=== PATIENT | female | born 1945 | race Caucasian/White ===

== ENCOUNTER → 2020-01-20 12:35 | Outpatient (CLI) | payer MEDICARE, SELFPAY ==
--- NOTE | ~2020-01-20 | MM_ITS ---
EXAMINATION: MM screening [place] BI w clotilde HISTORY: Screening mammogram TECHNIQUE: Craniocaudal and mediolateral oblique 3-D tomosynthesis images were obtained and synthetic 2-D images were generated. CAD analysis was submitted and interpreted. COMPARISON: No prior mammogram is available for comparison at this institution. BREAST PARENCHYMAL COMPOSITION: There are scattered areas of fibroglandular density. FINDINGS: There is no mammographic evidence for malignancy in the right breast. There is a focal asym metry superiorly in the left breast on MLO view. There are also clustered punctate calcifications in the upper outer quadrant of the left breast. IMPRESSION: 1. Clustered left breast calcifications in the upper outer quadrant. Nearby asymmetry in the upper as pect of the left breast, best seen on MLO view. 2. Additional mammographic views and possible breast ultrasound are recommended. BI-RADS Category 0: Incomplete: Needs additional imaging evaluation. Reviewed, dictated and finalized at location A. NCIAL COORDINATOR IMPRESSION: 1. Clustered left breast calcifications in the upper outer quadrant. Nearby asy mmetry in the upper aspect of the left breast, best seen on MLO view. 2. Additional mammographic views and possible breast ultrasound are recommended . BI-RADS Category 0: Incomplete: Needs additional imaging evaluation.
== END ==
PROVIDERS: Visit Provider Obstetrics & Gynecology Gynecology
DX: Z12.31 Encounter for screening mammogram for malignant neoplasm of breast (principal); R92.8 Other abnormal and inconclusive findings on diagnostic imaging of breast
CPT/HCPCS: 77063; 77067

== ENCOUNTER 2020-07-09 00:46 | Outpatient (CLI) | payer MEDICARE, SELFPAY ==
[2020-07-09 20:23] LABS: SARS-CoV-2 RNA PCR Negative
== END 2020-07-09 00:47 | disposition home or self-care (01) ==
LOC: ANHCOVIDDT 00:47
PROVIDERS: Visit Provider Orthopaedic Surgery
DX: Z01.812 Encounter for preprocedural laboratory examination (principal); Z20.828 Contact with and (suspected) exposure to other viral communicable diseases
CPT/HCPCS: 87635; C9803; U0003

== ENCOUNTER 2020-07-11 01:29 | Day surgery (SDC) | payer MEDICARE, SELFPAY ==
[2020-07-06 14:01] VITALS: BMI 32.6
--- NOTE | 2020-07-10 08:21 | PM.IMHP ---
H&P: HPI History of Present Illness Date/Time: 07/10/20 08:21 Chief complaint: Right rotator cuff tear Narrative: Marina Hidalgo is a 75 year old female [facility] Social History Social History Smoking packs per day: 2 Smoking cigarettes per day: 40.0 Years smoked: 30 Smoking pack-years: 60.00 Smoking status: Former smoker Tobacco type: cigarettes Smoking end date: 11/23/78 Alcohol intake: never Spiritual care concerns: No Meds Home Medications and Allergies Home Medications Medication Instructions Recorded Confirmed Type aspirin [Aspir-81] 81 mg PO DAILY 07/06/20 07/06/20 History biotin 5 mg PO DAILY 07/06/20 07/06/20 History calcium acetate(phosphat bind) 667 mg PO BID 07/06/20 07/06/20 History cholestyramine (with sugar) 1 g PO TID 07/06/20 07/06/20 History clotrimazole-betamethasone 1 applic TOPICAL DAILY 07/06/20 07/06/20 History cranberry extract 425 mg PO BID 07/06/20 07/06/20 History donepezil 10 mg PO HS 07/06/20 07/06/20 History escitalopram oxalate 5 mg PO EVERY OTHER DAY 07/06/20 07/06/20 History lshxizgj-tya-jlbp-FA-lutein 1 tablet PO DAILY 07/06/20 07/06/20 History [Centrum Silver Women] Allergies Allergy/AdvReac Type Severity Reaction Status Date / Time tramadol AdvReac Intermediate UNABLE TO Verified 07/06/20 14:00 MOVE LEFT LEG adhesive tape AdvReac Rash Verified 07/06/20 14:01 Exam Const: Other: Patient has pain right shoulder and impingement worse with activity somewhat relieved by rest she has tried medicine therapy cortisone exercise time it is felt she has rotator cuff tear documented by MRI scan I told her that on occasion I can fix this will try to fix it and see if we get her better if he can not that she will require reverse shoulder replacement later I have discussed this with her risks benefits limitations and alternatives in detail Assessment and Plan Additional Plan patient has rotator cuff tear large right will proceed with arthroscopy partial open distal clavicle excision rotator cuff debridement repair for a large tear if it fails will need reverse shoulder arthroplasty later
--- NOTE | 2020-07-10 12:38 | P.PNAN_ITS ---
Anes - Initial Pre Proc Eval Procedure: Operation Date: 07/11/20 09:30 Proposed Procedures p Right Shoulder Arthroscopy, Acromioplasty, Open Distal Clavicle Excision, Rotator Cuff Repair, Proceed As Indicated - Naren Sullivan MD Date/Time: 07/10/20 12:38 Surgeon: Naren Sullivan MD Pre Op Diagnosis: Right rotator cuff tear Patient Data Age: 75 Gender: F Height: 1.57 m Weight: 81 kg Allergies Allergy/AdvReac Type Severity Reaction Status Date / Time tramadol AdvReac Intermediate UNABLE TO Verified 07/11/20 07:35 MOVE LEFT LEG adhesive tape AdvReac Rash Verified 07/11/20 07:35 Home Medications Medication Instructions Recorded Confirmed Type Centrum Silver Women 1 tablet PO DAILY 07/06/20 07/11/20 History aspirin [Aspir-81] 81 mg PO DAILY 07/06/20 07/11/20 History biotin 5 mg PO DAILY 07/06/20 07/11/20 History calcium acetate(phosphat bind) 667 mg PO BID 07/06/20 07/11/20 History cholestyramine (with sugar) 1 g PO TID 07/06/20 07/11/20 History cranberry extract 425 mg PO BID 07/06/20 07/11/20 History donepezil 10 mg PO HS 07/06/20 07/11/20 History escitalopram oxalate 5 mg PO EVERY OTHER DAY 07/06/20 07/11/20 History hydrocodone-acetaminophen 1 tablet PO Q4H PRN #40 tablet 07/11/20 Rx Patient hx anesthesia problems: none Family hx anesthesia problems: none PMFSH Past Medical History Medical History (Updated 07/10/20 @ 12:39 by Angelito Rendon MD) Anxiety HX PANIC ATTACKS, NONE RECENTLY Dementia Depression Obesity Social History Social History Smoking packs per day: 2 Smoking cigarettes per day: 40.0 Years smoked: 30 Smoking pack-years: 60.00 Smoking status: Former smoker Tobacco type: cigarettes Smoking end date: 11/23/78 Alcohol intake: never Living arrangements: alone Spiritual care concerns: No Anes - Eval Final PreProcedure Day of Procedure 07/10/20 12:38 Patient weight: obese Heart: regular rate and rhythm Lungs: clear to auscultation and normal air movement Airway: Mallampati scale class II Neurological: alert and oriented Last oral intake: >/= 8 hours ASA classification: III Emergent: no Anesthetic plan: proceed Anesthesia type and monitoring: general ETT Informed Consent: The patient's anesthetic plan and its attendant risks and benefits were discussed with the patient/family/POA. Questions were solicited an d answers provided to the satisfaction of the patient/family/POA.
[2020-07-11] VITALS (10 sets, daily range): BP systolic 113–149; BP diastolic 54–77; PULSE 65–85; RESP 8–18; TEMP 36.1–36.2; O2SAT 94–100
--- NOTE | 2020-07-11 07:09 | WPDHPUPDATE1 ---
History and Physical Update Update Date/Time: 07/11/20 07:09 History and Physical has been reviewed, including an updated exam of the patient. There are NO changes in the patient's condition. Risks, benefits, and alternatives have been discussed and questions answered. Patient agrees to proceed with procedure.
--- NOTE | 2020-07-11 07:46 | ECG_ITS ---
Measurements Intervals [place] Rate: 61 P: 38 [place]: 178 QRS: -31 QRSD: 89 T: -3 QT: 440 QTc: 444 Interpretive Statements SINUS RHYTHM LEFT AXIS DEVIATION VOLTAGE CRITERIA FOR LVH BORDERLINE R WAVE PROGRESSION, ANTERIOR LEADS MINIMAL Q WAVES- HIGH LATERAL LEADS BORDERLINE T WAVE ABNORMALITY- INFERIOR LEADS BORDERLINE ECG Electronically Signed On 07-11-2020 8:50:07 CDT by Jayy Sears D.O.
[2020-07-11] MEDS: LACTATED RINGERS 1,000 ML 30 ML IV CONT ×2 (08:13→10:56)
[2020-07-11] MEDS: ACETAMINOPHEN 500 MG TABLET 1000 MG PO (08:14)
[2020-07-11] MEDS: KETOROLAC 15 MG/ML VIAL (*BKC) IV PUSH (08:16)
--- NOTE | 2020-07-11 08:59 | SUR.PREOP ---
Up to bathroom.
[2020-07-11] MEDS: ceFAZolin 2 GM/D5W 50 ML 2 GM/50 ML BAG IVPB (09:33)
--- NOTE | 2020-07-11 09:34 | WPDANESPNB ---
Anes - Peripheral Nerve Block Date/Time: 07/11/20 09:34 I have discussed with the patient/family/POA the placement of a peripheral nerve block for post-operative pain management, including associated risks, benefits, complications, and side effects. Alternative methods of post-operative analgesia were detailed. Questions were solicited and answers provided to the satisfaction of the patient/family/POA. Time-Out: A pre-procedural Time-Out was completed immediately before starting the procedure and confirmed: Patient Identification, Site, Procedure, Patient Position and the Availability of Requisite Equipment. Clinical Indications: Acute post-operative pain management requested by the operative surgeon. Nerve Block Insertion Note Anes-nerve block: supraclavicular right Patient position: supine Skin prep: chlorhexidine Needle: 22 gauge, stimulating, insulated echogenic needle. Needle length: 80 mm Technique: ultrasound (in plane) Injectate: bupivacaine 0.5% with epi 5 mcg/ml (20cc) Observations: tolerated well Complications: none Procedure start time:: 915 Procedure end time:: 920
[2020-07-11] MEDS: LIDO 1%/EPINEPHRINE 1:100,000 20 ML VIAL INFILTRATE (10:15)
--- NOTE | 2020-07-11 10:36 | PM.PROC ---
Procedure Note - Detailed Date of procedure: 07/11/20 Pre-op diagnosis: Right rotator cuff tear Post-op diagnosis: same Anesthesia: GETA Surgeon: Naren Sullivan MD Patient brought to OR7. A general anesthetic was used and placed in the beach chair position. Standard posterior and lateral portals made. Acromioplasty done. Rotator cuff tear seen. Nickel sized. A longitudinal incision made over the distal clavicle, and distal. 3-4 mm distal clavicle removed and the edges bevelled. Deltoid split. Acromioplasty rasped and rotator cuff tear identified. The edges were trimmed and then sewn down in a trough with #2 ethibond. A good repair was obtained. Deltoid repaired to itself the trapezius and acromion. the skin was then closd with 2-0 vicryl and skin glue. Plant Mechanic: Kaleb Pope Estimated blood loss (mL): 50 Drains: No Packing: No Pathology: none sent Complications: No immediate complications Condition: stable Disposition: PACU
[2020-07-11] MEDS: ONDANSETRON HCL ODT 4 MG TABLET PO (13:34)
== END 2020-07-11 13:45 | disposition home or self-care (01) ==
PROVIDERS: PCP Family Medicine; Visit Provider Orthopaedic Surgery
PROC: (CPT 29805; principal; 2020-07-11 09:30)
DX: M75.101 Unspecified rotator cuff tear or rupture of right shoulder, not specified as traumatic (principal); G89.18 Other acute postprocedural pain; Z87.891 Personal history of nicotine dependence; Z79.82 Long term (current) use of aspirin
CPT/HCPCS: 23420; 23120; 64415; 93005; A4565; A9270; J0330; J0690; J1100; J1885; J2250; J2405; J2704; J3010; J7120

== ENCOUNTER 2020-10-12 14:07 | Outpatient (CLI) | payer MEDICARE, SELFPAY ==
[2020-10-12 15:01] LABS: Anion Gap 7 mmol/L (8-16); Blood Urea Nitrogen 19 mg/dL (7-17); Calcium 9.2 mg/dL (8.4-10.2); Carbon Dioxide 31 mmol/L (22-30); Chloride 104 mmol/L (98-107); Estimated Glomerular Filt Rate > 60; Glucose 106 mg/dL (65-105); Potassium 4.3 mmol/L (3.4-5.0); Sodium 142 mmol/L (137-145)
--- NOTE | 2020-10-12 15:04 | ECG_ITS ---
Measurements Intervals [place] Rate: 61 P: 66 [place]: 168 QRS: -20 QRSD: 104 T: 21 QT: 431 QTc: 435 Interpretive Statements SINUS RHYTHM LOW QRS VOLTAGE IN PRECORDIAL LEADS VOLTAGE CRITERIA FOR LVH BASELINE WANDER- II, III, AVF BORDERLINE ECG Electronically Signed On 10-12-2020 18:07:36 MONOGRAM OPERATOR by Jayy Sears D.O.
== END 2020-10-12 14:08 | disposition home or self-care (01) ==
LOC: ANHLAB 14:12
PROVIDERS: PCP Family Medicine; Visit Provider Orthopaedic Surgery
DX: Z01.818 Encounter for other preprocedural examination (principal)
CPT/HCPCS: 36415; 80048; 93005

== ENCOUNTER 2020-10-20 08:57 | Outpatient (NON) | payer MEDICARE, SELFPAY ==
[2020-10-20 23:02] LABS: SARS-CoV-2 RNA PCR Negative
== END 2020-10-20 08:58 ==
LOC: ANHCOVIDDT 08:59
PROVIDERS: PCP Family Medicine; Visit Provider Orthopaedic Surgery
DX: Z20.828 Contact with and (suspected) exposure to other viral communicable diseases (principal); R09.89 Other specified symptoms and signs involving the circulatory and respiratory systems
CPT/HCPCS: 87635; C9803; U0003

== ENCOUNTER → 2021-05-08 15:55 | Outpatient (CLI) | payer MEDICARE, SELFPAY ==
--- NOTE | ~2021-05-08 | MM_ITS ---
EXAMINATION: MM screening [facility] BI w clotilde HISTORY: Screening mammogram TECHNIQUE: Craniocaudal and mediolateral oblique 3-D tomosynthesis images were obtained and synthetic 2-D images were generated. CAD analysis was submitted and interpreted. COMPARISON: 01/20/2020, 03/13/2016, 01/25/2015 BREAST PARENCHYMAL COMPOSITION: There are scattered areas of fibroglandular density. FINDINGS: There is no evidence of suspicious mass, calcification, or architectural distortion to sugg est malignancy in either breast. There has been no suspicious interval change. IMPRESSION: 1. No mammographic evidence of malignancy. 2. Recommend routine screening mammography in one year. BI-RADS Category 1: Negative Reviewed, dictated and finalized at location A.
== END ==
PROVIDERS: Visit Provider Obstetrics & Gynecology Gynecology
DX: Z12.31 Encounter for screening mammogram for malignant neoplasm of breast (principal)
CPT/HCPCS: 77063; 77067

== ENCOUNTER 2021-08-27 18:33 | Emergency (ER) | payer MEDICARE, SELFPAY ==
--- NOTE | ~2021-08-27 | XR_ITS ---
EXAMINATION: XR hip RT 2V w AP pelvis EXAM DATE: 08/27/2021 19:56 INDICATION: Initial encounter following injury, with pain of the right hip, pelvis. TECHNIQUE: Right hip frontal, 'frog leg' projections for interpretation. Frontal projection pelvis. There is no prior study for comparison. FINDINGS: Smooth right hip femoral head contour, no radiographic evidence of avascular necrosis. The re are no acute fractures or dislocations identified. There is no subcutaneous gas. The soft tissue is unremarkable. There are no radiopaque foreign bodies. There is moderate primary osteoarthritis . IMPRESSION: No acute osseous findings. Reviewed, dictated and finalized at location A. IMPRESSION: No acute osseous findings.
[2021-08-27 18:40] VITALS: RESP 18; TEMP 36.2
[2021-08-27 20:44] VITALS: BP 125/64; PULSE 70; RESP 20; O2SAT 99
--- NOTE | 2021-08-27 21:19 | ED.LOWEXIN ---
HPI - Extremity Injury (Lower) General Chief Complaint: Extremity Injury, Lower Stated Complaint: right hip pain Time Seen by Provider: 08/27/21 18:42 Source: patient Mode of arrival: ambulatory Limitations: no limitations History of Present Illness MD complaint: hip injury Onset (ago): hour(s) Injury: Right: hip (hip strain while carrying laundry) Type of Injury: unknown Place: home Severity: moderate Severity scale (1-10): 6 Relieving factors: rest Exacerbating factors: weight bearing, movement and palpation Associated symptoms: snap/pop sensation and ambulatory Other symptoms: none Treatments prior to arrival: other (none, rest) Related Data Home Medications Medication Instructions Recorded Confirmed Centrum Silver Women 1 tablet PO DAILY 07/06/20 07/11/20 aspirin [Aspir-81] 81 mg PO DAILY 07/06/20 07/11/20 biotin 5 mg PO DAILY 07/06/20 07/11/20 calcium acetate(phosphat bind) 667 mg PO BID 07/06/20 07/11/20 cholestyramine (with sugar) 1 g PO TID 07/06/20 07/11/20 cranberry extract 425 mg PO BID 07/06/20 07/11/20 donepezil 10 mg PO HS 07/06/20 07/11/20 escitalopram oxalate 5 mg PO EVERY OTHER DAY 07/06/20 07/11/20 Allergies Allergy/AdvReac Type Severity Reaction Status Date / Time tramadol AdvReac Intermediate UNABLE TO Verified 09/01/21 13:42 MOVE LEFT LEG adhesive tape AdvReac Rash Verified 09/01/21 13:42 Review of Systems Review of Systems: CONSTITUTIONAL: no fever, no weight loss, no confusion EYES: no vision changes, no eye pain ENT: no rhinorrhea, no sore throat, no difficulty swallowing CARDIOVASCULAR: no chest pain, no leg edema, no palpitations RESPIRATORY: no cough, no shortness of breath, no hemoptysis GASTROINTESTINAL: no abdominal pain, no nausea, no vomiting, no diarrhea GENITOURINARY: no flank pain, no dysuria, no hematuria SKIN: no rash, no jaundice MUSCULOSKELETAL: no trauma R hip pain radiating R posterior thigh, R knee pain NEUROLOGIC: No headache, no dizziness, no focal weakness PSYCHIATRIC: No hallucinations, no suicidal ideation PMFSH Past Medical History Medical History Anxiety HX PANIC ATTACKS, NONE RECENTLY Dementia Depression Obesity Social History Social History Smoking packs per day: 2 Smoking cigarettes per day: 40.0 Years smoked: 30 Smoking pack-years: 60.00 Smoking status: Former smoker Tobacco type: cigarettes Smoking end date: 11/23/78 Alcohol intake: never Spiritual care concerns: No Exam Narrative: General: alert, afebrile, answering all questions appropriately Head: normocephalic, atraumatic Eyes: EOMI bilaterally, anicteric, no injection ENT: moist mucous membranes, oropharynx patent, no rhinorrhea Neck: supple, trachea midline, no JVD Chest: equal chest rise bilaterally, no chest wall trauma noted Lungs: clear to auscultation bilaterally, respirations unlabored CV: regular rate, no ESTIVEN B, calf size equal bilaterally Abd: soft, non-distended, non-tender, no rebound, no gaurding, negative Ni's : no CVA tenderness B, bladder non-distended Back: no lumbar bony tenderness. paraspinal muscles without spasm EXT: RLE: Skin intact, no deformity noted, no bruising, no swelling, tenderness to the R posterior trochanter with palpation; no knee effusion, DP 1+ Skin: warm, dry, no pallor Neuro: alert, oriented x 3; CN 2-12 grossly intact, no dysarthria Psych: affect appropriate, though content normal Course Course Emergency Course: Right hip x-ray with no acute findings, patient does have point tenderness at the greater trochanter without deformity able to bear weight, consistent with either tendinitis at the or bursitis. Tylenol given in the ED. Patient instructed to follow-up with her primary doctor or orthopedic coder if no improvement. Vital Signs Vital signs: Vital Signs Temperature 36.2 C L 08/27/21 18:40 R
[2021-08-27] MEDS: ACETAMINOPHEN 500 MG TABLET 1000 MG PO (21:21)
--- NOTE | 2021-08-27 21:51 | PC.NURSE ---
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 states they will be there approx. 20 minutes from now.
== END 2021-08-27 21:50 | disposition home or self-care (01) ==
PROVIDERS: Emergency Provider Emergency Medicine
DX: M70.61 Trochanteric bursitis, right hip (principal); Z79.82 Long term (current) use of aspirin; Z87.891 Personal history of nicotine dependence; X50.9XXA Other and unspecified overexertion or strenuous movements or postures, initial encounter
CPT/HCPCS: 73502; 99283; A9270

== ENCOUNTER 2021-09-01 13:18 | Emergency (ER) | payer MEDICARE, SELFPAY ==
[2021-09-01 13:33] VITALS: BP 151/87; PULSE 86; RESP 19; TEMP 36.9; O2SAT 96
--- NOTE | 2021-09-01 22:01 | ED.GENADULT ---
HPI - General Adult General Chief complaint: Extremity Injury, Lower Stated complaint: right hip pain, no injury Time Seen by Provider: 09/01/21 13:31 Source: patient Mode of arrival: ambulatory Limitations: no limitations History of Present Illness HPI narrative: Patient presents with chief complaint of pain in his right buttock that radiated down the right leg. Patient states that she is selling her house that she has been doing a lot of moving and bending and rotating lately. Patient denies any falls, weakness or neurological deficits. Patient states that she was told that it was sciatica but wanted a second opinion. Patient states that she took ibuprofen and Tylenol which helped some but there is still discomfort. Related Data Home Medications Medication Instructions Recorded Confirmed Centrum Silver Women 1 tablet PO DAILY 07/06/20 07/11/20 aspirin [Aspir-81] 81 mg PO DAILY 07/06/20 07/11/20 biotin 5 mg PO DAILY 07/06/20 07/11/20 calcium acetate(phosphat bind) 667 mg PO BID 07/06/20 07/11/20 cholestyramine (with sugar) 1 g PO TID 07/06/20 07/11/20 cranberry extract 425 mg PO BID 07/06/20 07/11/20 donepezil 10 mg PO HS 07/06/20 07/11/20 escitalopram oxalate 5 mg PO EVERY OTHER DAY 07/06/20 07/11/20 Allergies Allergy/AdvReac Type Severity Reaction Status Date / Time tramadol AdvReac Intermediate UNABLE TO Verified 09/01/21 13:42 MOVE LEFT LEG adhesive tape AdvReac Rash Verified 09/01/21 13:42 Review of Systems Review of Systems: CONSTITUTIONAL: Denies fever, chills, or sweats. EYES: Denies visual changes, redness, or discharge. ENT: Denies rhinorrhea, congestion, sore throat, or otalgia. CARDIOVASCULAR: Denies chest pain, palpitations, or edema. RESPIRATORY: Denies cough or dyspnea. GASTROINTESTINAL: Denies abdominal pain, nausea, vomiting, or diarrhea. GENITOURINARY: Denies dysuria or hematuria. SKIN: Denies rash or itching. MUSCULOSKELETAL: Reports right buttock pain denies back pain, joint pain, or myalgia. NEUROLOGIC: Denies headache, numbness, dizziness, or weakness. PSYCHIATRIC: Denies anxiety or depression. [facility] Past Medical History Medical History Anxiety HX PANIC ATTACKS, NONE RECENTLY Dementia Depression Obesity Social History Social History Smoking packs per day: 2 Smoking cigarettes per day: 40.0 Years smoked: 30 Smoking pack-years: 60.00 Smoking status: Former smoker Tobacco type: cigarettes Smoking end date: 11/23/78 Alcohol intake: never Spiritual care concerns: No Exam Narrative: GENERAL: Well-appearing, well-nourished, and in no acute distress. HEAD: Normocephalic, atraumatic. EYES: PERRLA and EOMI. CHEST: Clear to auscultation. No respiratory distress. No wheezes rales or rhonchi HEART: Regular rate and rhythm. No murmur heard. Normal peripheral pulses. EXTREMITIES: Pain with palpation of right knee. Patient able to ambulate. Patient reported radicular pain to palpation over the piriformis area. normal range of motion. No edema. SKIN: Warm, dry, no rash. NEURO: No focal deficits. Alert and oriented x3. Gait steady. PSYCH: Normal mood and affect. Course Vital Signs Vital signs: Vital Signs Temperature 98.5 F 09/01/21 13:33 Pulse Rate 86 09/01/21 13:33 Respiratory Rate 19 09/01/21 13:33 Blood Pressure 151/87 H 09/01/21 13:33 Pulse Oximetry 96 09/01/21 13:33 Temperature 98.5 F 09/01/21 13:33 Pulse Rate 86 09/01/21 13:33 Respiratory Rate 19 09/01/21 13:33 Blood Pressure 151/87 H 09/01/21 13:33 Pulse Oximetry 96 09/01/21 13:33 Medical Decision Making MDM Narrative Medical decision making narrative: Patient has no acute injury. Patient symptoms correlate with sciatica. Discussed option to introduce Medrol Dosepak along with Tylenol and ibuprofen that she has been taking. Patient does not want to tr
== END 2021-09-01 14:05 | disposition home or self-care (01) ==
LOC: ANHED 14:23
PROVIDERS: Emergency Provider Emergency Medicine; PCP Physician Assistant Surgical
DX: M54.31 Sciatica, right side (principal); F03.90 Unspecified dementia, unspecified severity, without behavioral disturbance, psychotic disturbance, mood disturbance, and anxiety; E66.9 Obesity, unspecified; Z68.34 Body mass index [BMI] 34.0-34.9, adult; Z87.891 Personal history of nicotine dependence; F41.9 Anxiety disorder, unspecified; F32.A Depression, unspecified; Z79.82 Long term (current) use of aspirin
CPT/HCPCS: 99282

== ENCOUNTER 2022-08-29 00:12 | Emergency (ER) | payer MEDICARE, SELFPAY ==
--- NOTE | ~2022-08-29 | CT_ITS ---
EXAMINATION: CT abdomen pelvis w con DATE: 08/29/2022 03:10 INDICATION: Abdominal pain TECHNIQUE: Computed tomography (CT) of the abdomen and pelvis was performed with 100 mL Omnipaque-350 intravenous contrast. Automated exposure control and iterative reconstruction technique were employe d. The dose-length product was 760.04 mGy-cm. COMPARISON: None FINDINGS: Lung bases are clear. Heart size is normal. No pericardial or pleural effusion. Small sliding-type hi atal hernia. Focal hepatic steatosis at the ligamentum teres. Cholecystectomy clips the gallbladder f [place]. Additional small geographic region of decreased enhancement/attenuation at segment 5 of the lea er measuring up to 12 mm in maximal dimension which is nonspecific potentially an additional region o f focal fat. Multiple splenic calcific lesions and single tiny hepatic calcification consistent with old granulomatous disease. Pancreas, bilateral adrenal glands and kidneys are normal. Fluid throughou t the colon consistent with diarrhea. Moderate diverticulosis along the descending and sigmoid colon without adjacent inflammatory change to suggest diverticulitis. Small bowel and appendix are normal. Bladder is normal. The uterus is not identified and has likely been surgically resected. 2.5 cm right adnexal cyst. No free intraperitoneal gas or fluid. No pathologically enlarged abdominal or pelvic l ymphadenopathy. Moderate to severe thoracolumbar spondylosis. IMPRESSION: 1. Fluid throughout the colon consistent with nonspecific diarrhea. No other acute intra-abdominal/pe lvic process. 2. Small sliding-type hiatal hernia. 3. 1.2 cm hypodense/hypoenhancing lesion in segment 5 of the liver with configuration suggesting foca l fat. Could consider pre and postcontrast MRI for more definitive determination. Reviewed, dictated and finalized at location A. IMPRESSION: 1. Fluid throughout the colon consistent with nonspecific diarrhea. No other ac [place] intra-abdominal/pelvic process. 2. Small sliding-type hiatal hernia. 3. 1.2 cm hypodense/hypoenhancing lesion in segment 5 of the liver with configu ration suggesting focal fat. Could consider pre and postcontrast MRI for more d efinitive determination.
[2022-08-29 00:15] VITALS: BP 114/94; PULSE 102; RESP 20; TEMP 36.7; O2SAT 96
--- NOTE | 2022-08-29 01:58 | ED.GENADULT ---
HPI - General Adult General Chief complaint: Nausea/Vomiting/Diarrhea Stated complaint: diarrhea Time Seen by Provider: 08/29/22 00:52 History of Present Illness HPI narrative: 77-year-old female presents to the emergency department for evaluation of multiple days of diarrhea. Patient states her last few days she has had multiple episodes of diarrhea. Patient denies associated pain. Patient has been taking Pepto-Bismol without any significant improvement. Patient has history of dementia and anxiety. Related Data Home Medications Medication Instructions Recorded Confirmed aspirin 81 mg tablet,delayed 81 mg PO DAILY 07/06/20 07/11/20 release (Aspir-) biotin 5 mg capsule 5 mg PO DAILY 07/06/20 07/11/20 calcium acetate(phosphat bind) 667 667 mg PO BID 07/06/20 07/11/20 mg capsule cholestyramine (with sugar) 4 gram 1 g PO TID 07/06/20 07/11/20 powder for susp in a packet cranberry extract 425 mg capsule 425 mg PO BID 07/06/20 07/11/20 donepezil 10 mg tablet 10 mg PO HS 07/06/20 07/11/20 escitalopram oxalate 5 mg tablet 5 mg PO EVERY OTHER DAY 07/06/20 07/11/20 multivit with 1 tablet PO DAILY 07/06/20 07/11/20 qoeyihlw-xjkl-YY-lutein 8 mg iron-400 mcg-300 mcg tablet (Centrum Silver Women) Allergies Allergy/AdvReac Type Severity Reaction Status Date / Time tramadol AdvReac Intermediate UNABLE TO Verified 09/01/21 13:42 MOVE LEFT LEG adhesive tape AdvReac Rash Verified 09/01/21 13:42 Review of Systems Review of Systems: CONSTITUTIONAL: Denies fever, chills, or sweats. EYES: Denies visual changes, redness, or discharge. ENT: Denies rhinorrhea, congestion, sore throat, or otalgia. CARDIOVASCULAR: Denies chest pain, palpitations, or edema. RESPIRATORY: Denies cough or dyspnea. GASTROINTESTINAL: See HPI GENITOURINARY: Denies dysuria or hematuria. SKIN: Denies rash or itching. MUSCULOSKELETAL: Denies back pain, joint pain, or myalgia. NEUROLOGIC: Denies headache, numbness, or weakness. [facility] Past Medical History Medical History Anxiety HX PANIC ATTACKS, NONE RECENTLY Dementia Depression Obesity Social History Social History Smoking packs per day: 2 Smoking cigarettes per day: 40.0 Years smoked: 30 Smoking pack-years: 60.00 Smoking status: Former smoker Tobacco type: cigarettes Smoking end date: 11/23/78 Alcohol intake: never Spiritual care concerns: No Exam Narrative: APPEARANCE: Well appearing, no pain, no distress, well-nourished. HEAD: normocephalic, atraumatic. EYES: PERRLA/EOMI, conjunctivae clear. NOSE: Normal no drainage NECK: Supple. No adenopathy, no masses. RESPIRATORY: Airway patent, respirations nonlabored. Clear to auscultation bilaterally, no rales, rhonchi, wheezing. CARDIOVASCULAR: Regular rate and rhythm without murmurs rubs or gallops. ABDOMINAL: Soft, nontender, nondistended, normal bowel sounds MUSCULOSKELETAL: Moves all extremities. Strength/ROM intact, No edema, No calf tenderness. NEURO: Alert. Cranial nerves II through XII intact. Grossly intact SKIN: Warm, dry. Normal Color Course Course Emergency Course: Patient was afebrile no leukocytosis. CMP is within normal limits. No evidence of urinary tract infection. Patient was negative for flu and COVID. Patient CT scan showed no acute abnormality. Patient was updated on results of her work-up and treatment for home. Patient was encouraged to have close follow-up with her primary care physician. Vital Signs Vital signs: Vital Signs Temperature 98.0 F 08/29/22 00:15 Pulse Rate 102 H 08/29/22 00:15 Respiratory Rate 20 08/29/22 00:15 Blood Pressure 114/94 H 08/29/22 00:15 Pulse Oximetry 96 08/29/22 00:15 Oxygen Delivery Room Air 08/29/22 00:15 Temperature 98.0 F 08/29/22 00:15 Pulse Rate 102 H 08/29/22 00:15 Respiratory Rate 20 08/29/22 00:1
[2022-08-29 02:35] LABS: Basophils Absolute Auto 0.1 K/mm3 (0.0-0.1); Basophils Percent Auto 0.6 % (0.2-1.2); Eosinophils Absolute Auto 0.1 K/mm3 (0-0.3); Eosinophils Percent Auto 0.6 % (0-4.4); Hematocrit 41.9 % (37.0-47.0); Hemoglobin 14.8 g/dL (12.0-15.0); Immature Granulocyte Absolute 0.02 K/mm3 (0.00-0.031); Immature Granulocyte Percent A 0.2 % (0-0.5); Lymphocytes Absolute Auto 1.48 K/mm3 (0.9-3.2); Lymphocytes Percent Auto 15.4 % (18.3-44.2); Mean Corpuscular HGB Conc 35.3 g/dl (32-36); Mean Corpuscular Hemoglobin 33.1 pg (26-34); Mean Corpuscular Volume 93.7 fl (80-100); Mean Platelet Volume 9.8 fl (7.4-10.4); Monocytes Absolute Auto 0.8 K/mm3 (0.1-0.6); Monocytes Percent Auto 8.7 % (2.6-8.5); Neutrophils Absolute Auto 7.2 K/mm3 (1.3-6.7); Neutrophils Percent Auto 74.5 % (45.5-73.1); Platelet Count Result 214 k/mm3 (150-375); Red Blood Count 4.47 M/mm3 (4.2-5.4); Red Cell Distribution Width 12.8 % (11.5-14.5); White Blood Count 9.6 K/mm3 (4.5-10.0)
[2022-08-29 02:46] LABS: Alanine Aminotransferase 20 U/L (6-35); Albumin Level 4.8 g/dL (3.5-5.1); Alkaline Phosphatase 122 U/L (38-126); Anion Gap 11 mmol/L (8-16); Aspartate Amino Transferase 38 U/L (14-36); Blood Urea Nitrogen 19 mg/dL (7-17); Calcium 9.1 mg/dL (8.4-10.2); Carbon Dioxide 21 mmol/L (22-30); Chloride 104 mmol/L (98-107); Estimated CRCL calculation 55 ml/min; Estimated Glomerular Filt Rate > 60; Glucose 122 mg/dL (65-110); Sodium 136 mmol/L (137-145)
[2022-08-29 02:56] LABS: Appearance Urine Slightly Cloudy (Clear); Bilirubin Urine 1+ (Negative); Blood Urine Negative (Negative); Color Urine Yellow (Yellow); Glucose Urine UA Negative (Negative); Ketones Urine Trace mg/dL (Negative); Leukocyte Esterase Ur Negative LEU/UL (Negative); Nitrate Urine Negative (Negative); Protein Urine Negative (Negative); Urobilinogen Urine 0.2 mg/dL (<2.0); pH Urine 5.5 (5.0-9.0)
[2022-08-29 03:01] LABS: Bacteria Urine Trace /hpf; Mucus Urine Rare /lpf; Squamous Epithelial Cell Urine Occasional /hpf (Few); WBC Urine 0-3 /hpf
[2022-08-29 03:20] LABS: Add Urine Microscopic? YES
[2022-08-29 03:27] LABS: Influenza A QL RT-PCR Negative (Negative); Influenza B QL RT-PCR Negative (Negative); SARS-CoV-2 RNA PCR Negative
== END 2022-08-29 05:14 | disposition home or self-care (01) ==
PROVIDERS: Emergency Provider Emergency Medicine
DX: R19.7 Diarrhea, unspecified (principal); Z20.822 Contact with and (suspected) exposure to COVID-19; F03.90 Unspecified dementia, unspecified severity, without behavioral disturbance, psychotic disturbance, mood disturbance, and anxiety; E66.9 Obesity, unspecified; Z68.34 Body mass index [BMI] 34.0-34.9, adult; F41.9 Anxiety disorder, unspecified; F32.A Depression, unspecified; Z79.82 Long term (current) use of aspirin; Z87.891 Personal history of nicotine dependence; K44.9 Diaphragmatic hernia without obstruction or gangrene; K76.9 Liver disease, unspecified
CPT/HCPCS: 36415; 74177; 80053; 81001; 85025; 87502; 99284; C9803; Q9967; U0003; U0005